=== PATIENT | female | born 1980 | race Two or more races ===

== ENCOUNTER 2021-01-28 22:01 | Emergency (ER) | payer MEDICAID ==
[~2021-01-28] VITALS: Ht 157.5 cm; Wt 90.0 kg
[2021-01-29] MEDS ORDERED: HYDROCODONE/ACETAMINOPHEN 5-325 MG TABLET PO ONE (01:30)
[2021-01-29] MEDS ORDERED: PERTUSS(ACELL),DIPH,TET VAC/PF 0.5 ML SYRINGE IM. ONE (01:30)
[2021-01-29 02:19] VITALS: BP 144/66
[2021-01-29 02:19] LABS: BASOPHILS % (AUTO) 0.4 % (0.0-2.0); EOSINOPHILS % (AUTO) 0.9 % (1.0-6.0); HEMATOCRIT 39.5 % (36-46); HEMOGLOBIN 13.2 g/dL (12.0-16.0); LYMPHOCYTES # (AUTO) 3.5 K/uL (1.0-4.8); LYMPHOCYTES % (AUTO) 41.7 % (22.0-44.0); MEAN CORPUSCULAR HEMOGLOBIN 30.7 pg (26.0-34.0); MEAN CORPUSCULAR HGB CONC 33.4 G/dL (31.0-37.0); MEAN CORPUSCULAR VOLUME 92 fL (80-100); MONOCYTES # (AUTO) 0.4 K/uL (0.1-1.0); MONOCYTES % (AUTO) 5.2 % (2.0-9.0); NEUTROPHILS # (AUTO) 4.4 K/uL (1.8-7.7); NEUTROPHILS % (AUTO) 51.8 % (40.0-70.0); PLATELET COUNT (AUTO) 228 K/uL (150-450); RED CELL DISTRIBUTION WIDTH 13.4 % (11.5-14.5)
[2021-01-29 02:24] LABS: ANION GAP 10 mmol/L (8-16); CALCIUM, TOTAL 9.2 mg/dL (8.8-10.5); CARBON DIOXIDE 27 mmol/L (22-29); CHLORIDE 103 mmol/L (98-107); CREATININE 0.54 mg/dL (0.60-1.30); GLOMERULAR FILTR. RATE CALC > 60 mL/min (>60); GLUCOSE,RANDOM 98 mg/dL (70-110); POTASSIUM 4.3 mmol/L (3.5-5.1); SODIUM SERUM 140 mmol/L (136-145); UREA NITROGEN, BLOOD 18 mg/dL (7-18)
[2021-01-29 02:28] LABS: INR 0.9 (0.9-1.1); PROTHROMBIN TIME 10.1 SEC (9.4-11.6)
[2021-01-29 02:50] LABS: ALANINE AMINOTRANSFERASE 23 U/L (12-78); ALBUMIN 3.9 g/dL (3.4-5.0); ALKALINE PHOSPHATASE 94 U/L (46-116); ASPARTATE AMINOTRANSFERASE 15 U/L (15-37); BILIRUBIN,TOTAL 0.3 mg/dL (0.1-1.0); CREATINE KINASE, TOTAL ONLY 86 U/L (26-192); TOTAL PROTEIN, SERUM 7.8 g/dL (6.4-8.2)
== END 2021-01-29 02:00 | disposition home or self-care (01) ==
LOC: EMS 22:04
DX: S30.861A Insect bite (nonvenomous) of abdominal wall, initial encounter (principal); W57.XXXA Bitten or stung by nonvenomous insect and other nonvenomous arthropods, initial encounter; Y93.89 Activity, other specified; Y92.89 Other specified places as the place of occurrence of the external cause; Y99.8 Other external cause status
CPT/HCPCS: 80053; 82550; 85025; 85610; 90471; 90715; 99283

== ENCOUNTER 2023-09-01 01:44 | Emergency (ER) | payer MEDICAID, SELFPAY ==
[~2023-09-01] VITALS: Ht 154.9 cm; Wt 86.0 kg
[2023-09-01 02:16] LABS: COVID AG,FIA SOURCE NASAL SWAB
[2023-09-01] MEDS ORDERED: AMOX TR/POT CLAV 875 MG/125 MG TABLET PO ONE (02:30)
[2023-09-01] MEDS ORDERED: KETOROLAC TROMETHAMINE 30 MG/ML VIAL IM ONE (02:30)
[2023-09-01 02:40] LABS: INFLUENZA TYPE A NEGATIVE FOR TYPE A (NEGATIVE); INFLUENZA TYPE B NEGATIVE FOR TYPE B (NEGATIVE); SARS-COV2 (COVID) ANTIGEN,FIA Negative (Negative)
[2023-09-01 02:41] VITALS: BP 129/82; PULSE 78; RESP 18; TEMP 98.2
[2023-09-01] MEDS ORDERED: IBUP-1492 PO (03:11)
[2023-09-01] MEDS ORDERED: AMOX1TAB16 PO (03:11)
== END 2023-09-01 03:24 | disposition home or self-care (01) ==
LOC: EMS 01:45
DX: J03.90 Acute tonsillitis, unspecified (principal); I10 Essential (primary) hypertension; Z98.890 Other specified postprocedural states; Z20.822 Contact with and (suspected) exposure to COVID-19
CPT/HCPCS: 99283; 87426; 87430; 87804; 96372; J1885

== ENCOUNTER 2023-09-02 21:48 | Emergency (ER) | payer MEDICAID ==
[~2023-09-02] VITALS: Ht 154.9 cm; Wt 85.9 kg
[~2023-09-02 21:48] MED LIST: AMOX1TAB16 PO; IBUP-1492 PO
[2023-09-02 21:56] VITALS: BP 140/75; PULSE 89; RESP 16; TEMP 98.6
== END 2023-09-02 23:35 | disposition left against medical advice (07) ==
LOC: EMS 21:50
DX: R10.9 Unspecified abdominal pain (principal); Z53.21 Procedure and treatment not carried out due to patient leaving prior to being seen by health care provider
CPT/HCPCS: 99281; Z7502